=== PATIENT | female | born 1945 | race Native Hawaiian/Other Pacific Islander ===

== ENCOUNTER 2016-07-01 18:33 | Emergency (ER) | payer MEDICARE, MEDICAID ==
--- NOTE | 2016-07-07 19:49 | ER ---
ADMIT: 07/01/2016 RM/LOC: ER [facility] MR#: [id number] [address] [id number] [place] [address] Emergency Room Report SEX: F AGE: 71 : 1945 DATE: 07/01/2016 CHIEF COMPLAINT: Vomiting, diarrhea, and cough. HISTORY OF PRESENT ILLNESS: This is a 71-year-old female who comes to us from [place]. The patient has a past medical history significant for dementia and schizoaffective disorder. The patient is unable to give any history of her current ailment. Per the facility's reports, she has been having nausea, vomiting, diarrhea, and cough and just increased agitation and restlessness, prompting her arrival in the ER today. The patient is unable to answer any questions or give history. She does respond to commands. She indicates that what is bothering her the most is the cough. She denies any belly pain when you palpate her abdomen. The only real finding we can go off today is the fever, which is measured at 101.2 upon arrival. COURSE IN THE EMERGENCY DEPARTMENT: The patient was seen and examined. Unable to answer questions. She is agitated, but she does follow commands. Influenza swab came back negative. CBC with diff shows white count 11.7, hemoglobin 13, hematocrit 37.1, platelets 195. CMP unremarkable. UA clean. No evidence of acute infection. Chest x-ray negative for infiltrate. She was given 1 g of Tylenol. IMPRESSION: 1. Upper respiratory infection. 2. Fever. DISPOSITION: The patient will be discharged back to [place]. She is to resume her regular orders. Follow up with Dr. Walker if not improving using Tylenol as needed for fever. SIDNEY Hoyt / Pa Bailey MD / ashley JOB #: [id number] CC: Manjinder Be MD, Attending Physician Jluis Walker MD, Family Physician
== END 2016-07-01 21:15 | disposition home or self-care (01) ==
LOC: ER 18:33
DX: J06.9 Acute upper respiratory infection, unspecified (principal); E78.5 Hyperlipidemia, unspecified; Z79.899 Other long term (current) drug therapy

== ENCOUNTER → 2016-08-21 | Outpatient (CLI) | payer MEDICARE, MEDICAID | END | disposition home or self-care (01) | LOC: RAD.S 08-20 11:10 | DX: Z12.31 Encounter for screening mammogram for malignant neoplasm of breast (principal) ==